=== PATIENT | female | born 1980 | race American Indian/Alaskan Native ===

== ENCOUNTER 2017-10-28 13:57 | Emergency (ER) | payer OTHER ==
[2017-10-28 15:12] VITALS: TEMP 98.3; O2SAT 100
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
--- NOTE | 2017-10-28 16:36 | RAD ---
PROCEDURE: Right Knee Radiographs. HISTORY: right knee pain COMPARISON: None. FINDINGS: BONES: Normal. No fracture. JOINTS: Normal. No osteoarthritis. JOINT EFFUSION: None. OTHER FINDINGS: None. IMPRESSION: Normal radiographs of the right knee.
[2017-10-28 17:05] VITALS: BP 112/70; PULSE 72; RESP 18
== END 2017-10-28 16:44 | disposition home or self-care (01) ==
LOC: ED 13:57
DX: M25.561 Pain in right knee (principal)